=== PATIENT | female | born 1955 | race Native Hawaiian/Other Pacific Islander ===

== ENCOUNTER 2018-06-09 16:17 | Inpatient (IN) | payer OTHER ==
[~2018-06-09] VITALS: Ht 162.6 cm; Wt 50.8 kg
[~2018-06-09 16:17] MED LIST: AMOX500C85 PO; CELEXA20 MG PO; DAYPRO600 MG PO; ESTR0.6211 PO; FLUT0.05 NAS; LEVO0.1224 PO; LIDOPATCH TOP; LYRICA75 MG OR; MUPI2OIN2 TOP; PRISTIQ50 MG OR; RALO60TA PO; TOPAMAX25 MG PO; VYTORIN1 TA2 PO
[2018-06-09 16:18] VITALS: BP 161/108; TEMP 97.5
[2018-06-09 16:44] LABS: PLATELET COUNT 233 K/uL (152-353)
[2018-06-09 16:48] LABS: POTASSIUM 3.8 mmol/L (3.6-5.2)
--- NOTE | 2018-06-09 19:40 | NUR ---
62 YR OLD W/F PT BROUGHT TO ICU 3 AT 1930 FROM ER ADMITTED WITH COPD, PNEUMONIA, RESPIRATORY FAILURE. HISTORY OF COPD WEARS HOME O2, CONSTIPATION, HTN, CABG, BLOOD TRANSFUSION, SEIZURES, HYSTERECTOMY, KNEE SURGERY(PT CAN NOT REMEMBER WHICH KNEE), TAKES MORPHINE SUL ER Q DAY FOR PAIN FROM A BACK INJURY IN ACCIDENT PER PT. PT AWAKE, ALERT, AND ORIENTED X4 LAYING IN POSITION OF COMFORT, NOTE PT CAN MOVE AROUND IN BED PER SELF AND USUALLY DOES AT HOME PER SELF. SKIN WARM AND DRY, RADIAL AND PEDAL PULSES INTACT/EQUAL, BS+, LUNGS DIMINISHED ON AUSCULTATION WITH A VERY FAINT NOISE ON EXPIRATION, RESP RATE RAPID 27-30, BIPAP IN USE 15/5 FIO2 OF 50% AND O2 SAT OF 94%, 20G IV INTACT TO L AC WITH NO PROBLEMS NOTED TO SITE AND ROCEPHIN 1 GRAM(STARTED IN ER) INFUSING PER ORDER. EDUCATED PT AND HER ABOUT DOCTORS ORDERS, MEDS, DIET, ACTIVITY, LAB WORK, VITALS. ACKNOWLEDGE UNDERSTANDING. TO BRING A FEW HOME MEDS(IN MORNING) THAT WERE NOT BROUGHT TO HOSPITAL TONIGHT. ENCOURAGED TO CALL NEEDED, CALL LIGHT IN REACH, BED IN LOW POSITION, RAILS UP X3. EDUCATED ALSO ON BED CONTROLS.
[2018-06-09 19:50] VITALS: BP 135/93; TEMP 99
[2018-06-09 20:30] VITALS: BP 146/84
[2018-06-09 21:00] VITALS: BP 143/92
--- NOTE | 2018-06-09 21:15 | NUR ---
PT AWAKE AND ORIENTED WITH NO DISTRESS NOTED, DENIES ANY PAIN OR PROBLEMS, IV INTACT, BIPAP IN USE, VITALS BEING MONITORED. PT ASSISTED TO USE BEDPAN SINCE PT IS ON BIPAP AND IS ORDERED BEDREST, NOTE PT'S RESP RATE INCREASED AND SOME SOB NOTED WHEN PT PULLED HER PANTS OFF WHILE LAYING IN BED. NOTE 125 ML OF DARK YELLOW URINE. WILL MONITOR CLOSELY, RAILS UP X3, BED IN LOW POSITION, ENCOURAGED TO CALL NEEDED. PT NOW WATCHING TV.
[2018-06-09 22:00] VITALS: BP 133/88
--- NOTE | 2018-06-09 22:10 | NUR ---
AWAKE LAYING IN POSITION OF COMFORT IN BED WATCHING TV, NO DISTRESS NOTED, DENIES ANY PROBLEMS AT THIS TIME, WILL MONITOR CLOSELY.
[2018-06-09 23:00] VITALS: BP 133/89
[2018-06-10] VITALS (28 sets, daily range): BP systolic 113–166; BP diastolic 77–106; TEMP 98.2–99.8; Ht 162.6 cm; Wt 50.8 kg
--- NOTE | 2018-06-10 00:08 | NUR ---
PT RESTING IN BED WITH EYES CLOSED AND NO S/S OF PAIN OR DISTRESS NOTED, RESP RATE REMAINS ELEVATED 26-30, SQUIRREL MAN IN USE, VITALS BEING MONITORED Q 1 HOUR, BIPAP IN USE WITH SAT OF 95%, 20G IV INTACT TO L AC WITH NO PROBLEMS NOTED TO SITE, PT MOVE AROUND IN BED PER SELF, WILL MONITOR CLOSELY, RAILS UP X3, BED IN LOW POSITION.
--- NOTE | 2018-06-10 02:02 | NUR ---
PT AWAKE LAYING IN BED, DENIES ANY PAIN OR NEEDS AT THIS TIME, NO S/S OF DISTRESS NOTED, STATES SHE WOKE UP AND CAN NOT FALL BACK ASLEEP, 20G IV LOCK INTACT TO L AC, RESP RATE REMAINS ELEVATED 25-28, BIPAP IN USE WITH FIO2 OF 50% AND O2 SAT OF 97%, MORTGAGE LOAN OFFICER IN USE WITH RATE OF 101, VITALS BEING MONITORED, WILL MONITOR CLOSELY, RAILS UP X3, BED IN LOW POSITION, ENCOURAGED TO CALL NEEDED.
--- NOTE | 2018-06-10 02:42 | NUR ---
PT STATES THAT SHE IS FEELING ANXIOUS, VITALS STABLE, O2 SAT 96-97% ON BIPAP, RESP RATE 25-28 GETS UP TO 30 AT TIMES, NO S/S OF ACUTE DISTRESS NOTED. [address] NARDA IBRAHIM IN ER ABOUT PT'S ANXIETY, NEW ORDER FOR ATIVAN 0.5MG PO TID PRN FOR ANXIETY T.O. R&V DR. Susy IBRAHIM/ARJUN GORDON RN. MADE AWARE THAT THERE IS AN ADMIT ORDER FOR NPO UNTIL OFF BIPAP BUT DR. IBRAHIM STATES IT IS OKAY TO GIVE SMALL AMOUNT OF WATER WITH PO MEDICATION.
--- NOTE | 2018-06-10 03:10 | NUR ---
GAVE ATIVAN 0.5MG PO PRN WITH SMALL AMOUNT OF WATER FOR CONTINUED ANXIETY PER PT, WILL MONITOR CLOSELY.
[2018-06-10] MEDS ORDERED: MORPHINE SULFAT90 MG PO (03:23)
[2018-06-10] MEDS ORDERED: ROPINIROLE2 M1 PO (03:27)
[2018-06-10] MEDS ORDERED: ATEN50TA36 PO (03:33)
--- NOTE | 2018-06-10 04:15 | NUR ---
PT MANUAL B/P IS 162/94, NOTE PT DOES TAKE MORNING B/P MEDICATION AT HOME, PT REMAINS AWAKE WITH NO S/S OF ACUTE DISTRESS OR PAIN NOTED, DENIES ANY NEEDS, 20G IV LOCK INTACT TO L AC, BIPAP IN USE WITH O2 SAT OF 97%, ARCHITECTURE INTERN IN USE, WILL MONITOR CLOSELY, RAILS UP X3, BED IN LOW POSITION.
--- NOTE | 2018-06-10 05:15 | NUR ---
B/P ON MONITOR READS 150/100. MANAGER AGRICULTURAL CHANGED B/P CUFF TO SMALL ADULT, B/P RECHECKED AND IS NOW 133/96, WILL MONITOR CLOSELY.
[2018-06-10 05:32] LABS: PLATELET COUNT 200 K/uL (152-353)
[2018-06-10 05:39] LABS: POTASSIUM 3.5 mmol/L (3.6-5.2)
--- NOTE | 2018-06-10 06:16 | NUR ---
RESTING IN POSITION OF COMFORT WITH EYES CLOSED, NO S/S OF PAIN OR DISTRESS NOTED, IV LOCK INTACT TO L AC, BIPAP IN USE, VITALS BEING MONITORED, WILL MONITOR CLOSELY, RAILS UP, BED IN LOW POSITION.
--- NOTE | 2018-06-10 07:00 | NUR ---
PT RESTING IN LOW FOWLERS. O2 SAT 95% ON BIPAP 15/5 WITH 50% FIO2.,RR RATE 24. NO C/O PAIN.
[2018-06-10] MEDS ORDERED: [UNRECOGNIZED DRUG - OTHER] PO (07:05)
--- NOTE | 2018-06-10 09:30 | NUR ---
PT CONTINUES TO REST QUIETLY IN LF, ENCOURAGED PT TO TURN SELF IN BED OR WE COULD HELP TURN HER ,EXPLAINED REASONS BEHIND TURNING SELF. PT STATES 'I'M OK RIGHT NOW. I SHIFT MYSELF'.
--- NOTE | 2018-06-10 10:15 | NUR ---
PT'S IN TO VISIT. ASKED WHEN DR WOULD BE IN. EXPLAINED TO THAT IT COULD BE ANY TIME OR LATER TODAY. PHONE CALL TO THE ER,TALKED WITH LORA. REQUESTED THAT LORA WOULD TELL DR CHOW THAT PT'S WAS HERE & WOULD LIKE TO SPEAK TO HIM IF POSSIBLE.
--- NOTE | 2018-06-10 12:30 | NUR ---
PT RESTING WITH EYES CLOSED,O2 SAT 97%. RR RATE 27.
[2018-06-10] MEDS ORDERED: LEVE500T5 PO (12:51)
[2018-06-10] MEDS ORDERED: ANORO ELLIPTA 61 AER INH (12:53)
--- NOTE | 2018-06-10 14:57 | NUR ---
PT SITTING UP TALKING WITH ,BIPAP INTACT,RESPIRATORY RATE UP TO 33 & SOB INCREASES WITH MINIMAL EFFORT. MOUTH CARE.
--- NOTE | 2018-06-10 15:45 | NUR ---
PHONE CALL TO ER. TALKED WITH LORA. DR ZACH CHOW STILL BUSY.
--- NOTE | 2018-06-10 15:47 | NUR ---
PT ASSISTED TO USE BEDPAN,VOIDED 300 ML CONCENTRATED DK YELLOW URINE. ASSISTED WITH PERICARE PER SRINI BHANDARI LPN. MOUTHCARE.
--- NOTE | 2018-06-10 15:59 | NUR ---
CHEST & ABD XRAY CALLED TO DR PATEL. NO NEW ORDERS AT THIS TIME.
--- NOTE | 2018-06-10 19:20 | NUR ---
DR. ZACH CHOW IN ICU MAKING ROUNDS ON PT. 193 PT RESTING QUIETLY WITH EYES CLOSED, NO S/S OF PAIN OR DISTRESS NOTED. SKIN WARM AND DRY, RADIAL AND PEDAL PULSES INTACT/EQUAL, BS+, LUNGS DIMINISHED WITH FAINT EXPIRATORY WHEEZING NOTED ON AUSCULTATION, 20G IV LOCK INTACT TO L AC WITH NO PROBLEMS NOTED TO SITE, RESP RATE REMAINS ELEVATED AT TIMES AND SLIGHTLY SHALLOW, BIPAP WITH FIO2 OF 50% WITH O2 SAT OF 97%, VITALS BEING MONITORED, WEB COORDINATOR IN USE WITH RATE IN THE 80s-90s. WILL MONITOR CLOSELY, RAILS UP, BED IN LOW POSITION, HOB ELEVATED IN POSITION OF COMFORT, PT MOVES AROUND IN BED PER SELF.
--- NOTE | 2018-06-10 20:30 | NUR ---
PT ASSISTED TO USE BEDPAN, NOTE 200ML OF CONCENTRATED LIGHT TEA/DARK YELLOWISH COLORED URINE NOTED. NOTE PERRLA. DENIES ANY NEEDS AT THIS TIME.
--- NOTE | 2018-06-10 20:45 | NUR ---
ASSISTED PT WITH MOUTH CARE AND PT HAD A FEW ICE CHIPS, NO PROBLEMS NOTED, DR IS AWARE THAT PT IS GETTING ICE CHIPS.
--- NOTE | 2018-06-10 22:10 | NUR ---
MANUAL B/P IS 150/96, WILL CONTINUE TO MONITOR, PT'S HOME MEDS INCLUDING B/P MED HAVE NOT BEEN RESTARTED BUT MEDS HAVE BEEN LOOKED AT BY DR. Susy CHOW TODAY.
--- NOTE | 2018-06-10 22:10 | NUR ---
PT AWAKE WATCHING TV IN POSITION OF COMFORT WITH HOB ELEVATED, NO DISTRESS OR PAIN NOTED, IV INTACT WITH FLUID ONGOING, BIPAP IN USE. C/O SOME NAUSEA AND NOT BEING ABLE TO SLEEP. GAVE PT ZOFRAN 4MG PO PRN AND AMBIEN 10MG PO PRN, WILL MONITOR CLOSELY.
--- NOTE | 2018-06-10 23:10 | NUR ---
RESTING QUIETLY IN BED WITH EYES CLOSED, NO S/S OF PAIN OR DISTRESS NOTED, IV INTACT WITH NS INFUSING AT 100ML/HR, BIPAP IN USE WITH O2 SAT OF 97%, RESP RATE NONLABORED, VITALS BEING MONITORED, NOTE PT'S B/P IS NOW 120/84, WILL MONITOR CLOSELY, RAILS UP X3, BED IN LOW POSITION.
[2018-06-11] VITALS (23 sets, daily range): BP systolic 86–166; BP diastolic 55–116; TEMP 97.9–99.1
--- NOTE | 2018-06-11 02:02 | NUR ---
RESTING IN BED IN POSITION OF COMFORT WITH EYES CLOSED, NO S/S OF PAIN OR DISTRESS NOTED, IV INTACT WITH FLUID ONGOING, RESP RATE 24 NONLABORED, BIPAP IN USE WITH O2 SAT OF 97%, VITALS BEING MONITORED, WILL MONITOR CLOSELY, RAILS UP, BED IN LOW POSITION.
[2018-06-11 05:57] LABS: PLATELET COUNT 209 K/uL (152-353)
--- NOTE | 2018-06-11 05:58 | NUR ---
DECREASED FIO2 TO 45% PER ABG RESULTS. NURSE Shaila GORDON RN AWARE OF CHANGES.
--- NOTE | 2018-06-11 06:00 | NUR ---
ASSISTED PT TO USE BEDPAN, NO DISTRESS OR PAIN NOTED, IV INTACT, BIPAP IN USE, VITALS BEING MONITORED, WILL MONITOR CLOSELY, RAILS UP, BED IN LOW POSITION.
[2018-06-11 06:10] LABS: POTASSIUM 3.6 mmol/L (3.6-5.2)
--- NOTE | 2018-06-11 06:50 | NUR ---
NEW ORDER FROM DR. NARDA IBRAHIM TO START ATENTOLOL 25MG PO BID DUE TO B/P BEING A LITTLE HIGH. ASLO NEW ORDER FOR PORTABLE CHEST X-RAY NOW, CLEAR LIQUID DIET TO START THIS AM AND ADVANCE TOLERATED. T.O. R&V DR. NARDA IBRAHIM/ARJUN GORDON RN.
--- NOTE | 2018-06-11 08:22 | NUR ---
AM ASSESSSEMENT DONE PT RESTING IN BED HOB UP. PT WANTS OFF BIPAP. REMOVED BIPAP CHANGED TO 02 AT 4 L NC HUMIDIFIED HOB UP SAT 94 RESP RATE 25. TAKING SIPS WATER. DR BAUTISTA VISITED CHECKED PATIENT WILL COME BACK TO REVIEW CHART AND WRITE NEW ORDERS.
--- NOTE | 2018-06-11 08:26 | NUR ---
PT UNABLE TO ROCKY NC RESP RATE GOING UP 30 MIN. SAT DROPPING TO 89. RESP DEPT HERE PT BACK ON BIPAP.
--- NOTE | 2018-06-11 09:05 | NUR ---
DR BAUTISTA HERE CHECKED PT. OBSERVED BREATHING PATTERNS, LUNG SOUNDS RECIEVED NEW ORDERS. TALKED WITH PATIENT ABOUT HERE BREATHING STATUS AND IF BIPAP DID NOT WORK TALKED ABOUT INTUBATION AND VENTILATOR. PT AGREED TO GO ON VENT IF NEEDED. VERY TIRED RESP 28 MIN LABORED LUNGS TIGHT EXP WHEEZING THROUGH OUT. RESP DEPT HER PT RECIEVED BREATHING TX.
--- NOTE | 2018-06-11 10:00 | NUR ---
INSERTED 16 F SOOD CATH BY MARISOL KNOWLES LPN. PT ROCKY WELL RETURN DARK ISHMAEL URINE. NOTED B/P CONTINUES TO BE ELEVATED. 153/108, RECIEVED PO MED EARLIER THIS AM FOR B/P. REPORT TO .
--- NOTE | 2018-06-11 11:00 | NUR ---
PT RECIEVED NEBS, CHANGED OVER TO CONTINIOUS NEB, ROCKY FOR ABOUT 30 MIN WORKING HARDER TO BREATH USING ACCESSORY MUSCLES. SAT BEGAN TO DROP SOME. ABG DRAWN. HERE DOCTOR SPOKE WITH HIM ABOUT PT CONDITION. AND POSSIBLE NEED FOR VENT. OK WITH .
--- NOTE | 2018-06-11 11:32 | NUR ---
placed on cont neb as ordered x 1 hr. tolerated for 30min only. ABG done then placed back on Bipap. Bipap tolerated well at this time.
--- NOTE | 2018-06-11 12:00 | NUR ---
DID NOT ROCKY NEBS VERY WELL. ABG REPORT TO DR BAUTISTA. DR WHITE OBSERVED PT. PLACE PT BACK ON BIPAP. HOLD NPO FOR NOW PT BREATHING HARD, HIGH RISK ASPIRATION. SAT's LOW 90'S. USING ACCESSORY MUSCLES, DISTENDED NECK VEINS. RECIEVED LASIX 40 AT 1135 WORKING WELL NOTED INCREASED OUTPUT.
--- NOTE | 2018-06-11 14:00 | NUR ---
CONTINUES RESTING ON BIPAP. SAT98% APPEARS TO BE DOING BETTER. REMOVED MASK OCCASIONALLY TO TAKE SIP OF 7 UP. C/O DRY MOUTH ASSISTED PT NEEDED. EMPTIED 100 ML FROM SOOD CATH CLEAR ISHMAEL URINE. PT NOT BREATHING HARD IMPROVED SATS. LESS NECK VEIN DISTENTION.
--- NOTE | 2018-06-11 17:00 | NUR ---
RESTING IN BED HOB UP. CONTINUES ON BIPAP. SAT 96% PT APPEARS TO BE BETTER. RESP STILL LABORED CONTINUES WITH EXP WHEEZING. DOSEN'T SOUND TIGHT. PT STATES "STILL FEEL BAD" EMPTIED ANOTHER 700 CLEAR URINE. PT WEARING BIPAP MASK MOUTH BREATHING UNABLE TO MONITOR CO2. NASAL LINE. IN PLACE BUT PT MOUTH BREATHING WITH BIPAP MASK ON.
--- NOTE | 2018-06-11 20:21 | NUR ---
VISITORS AT BEDSIDE. PT WEARING AND USING BIPAP. PT DOES REMOVE AND PULLS UP MASK TO TAKE SWALLOWS OF WATER. RESP IS PRESENT AND AEROSOL TREATMENTS ARE BEING ADMINISTERED ORDERED. PT IS UPSET THAT HER IS IN THE ER HERE IN [place]. IS BEING SHIPPED TO [place], PT'S DIGITAL [employer]ENS[employer] INVESTIGATOR AND HER SONS IN TO SUPPOT PT AND REASSURE HER THAT EVERYTHING IS OK.
--- NOTE | 2018-06-11 23:02 | NUR ---
PT IS RESTING WITH EYES CLOSED. USING BI-PAP. HR IS NOW 64 BMP. BP IMPROVED TO 117/84. HR IS 97 PERCENT. SOOD CATHETAR INTACT WITH CLEAR URINE DRAINING. RESP ARE LESS LABORED AT 24 PER MINUTES.
[2018-06-12] VITALS (18 sets, daily range): BP systolic 135–178; BP diastolic 77–113; TEMP 97.6–98.7
--- NOTE | 2018-06-12 01:58 | NUR ---
PT AWAKE AND COUGHING UNPRODUCTIVELY. GUAIFENESIS 15 ML GIVEN TO PT. PT DRANK WATER AND BIPAP WAS PLACED BACK ON PT,
--- NOTE | 2018-06-12 02:14 | NUR ---
PT BACK TO RESTING. USING BIPAP. O2 SAT IS 94 PERCENT.
--- NOTE | 2018-06-12 06:30 | NUR ---
UA WAS COLLECTED AND SENT TO LAB. BLOOD WAS DRAWN FOR CBC,CMP, IRON AND MAG AND PHOS. PT HAS TOLERATED THE BIPAP MOST OF THIS SHIFT. PT HAS BEEN TAKING SIPS OF WATER TO KEEP MOUTH MOIST.
[2018-06-12 06:34] LABS: PLATELET COUNT 255 K/uL (152-353)
[2018-06-12 06:40] LABS: POTASSIUM 3.5 mmol/L (3.6-5.2)
--- NOTE | 2018-06-12 08:00 | NUR ---
PATIENT RESTING IN BED, RESTING QUIETLY WEARING BIPAP ROCKY WELL. VITAL SIGNS APPEAR IMPROVED SOME PT SAT 98% ON BIPAP. ATIVAN GIVEN PO EARLIER EFFECTIVE. CALLED AM LABS TO DR BAUTISTA, RECIEVED ORDERS.
--- NOTE | 2018-06-12 09:00 | NUR ---
PT RESTING EASIER THIS AM STILL USING ACCESORY MUSCLES. EXP WHEEZING THROUGHOUT LUNG FIELD. WEARING BIPAP. RECIEVED NEBS ORDERED. UNABLE TO DO CONTINIOUS NEB NEED PRESSURE FROM BIPAP TO KEEP SATS UP. DR BAUTISTA VISITED CHECKED PT. TALKED WITH PATIENT EXPLAINED TO HER THAT SHE NEEDED TO GO TO [place] PT AGREED TO GO.
--- NOTE | 2018-06-12 10:00 | NUR ---
PT AWAKE FAMILY HERE TOLD THEM ABOUT PT GOING TO [facility] IN [place]. PT RECIEVING AM MEDS ORDERED. CALLS MADE PAPERWORK SIGNED WAIT FOR ROOM NO.
--- NOTE | 2018-06-12 12:00 | NUR ---
PT CONTINUES SHORT OF BREATH WHEN TALKING BIPAP OFF UNABLER TO TAKE FOOD AT THIS TIME. WILL REMOVE MASK AND TAKE FEW SIPS CLEAR LIQUIDS NO COMPLAINTS. FAMILY MEMBER KATTY TOOK PT'S CLOTHS. GLASSES. AND HOME MEDS WITH HER. PT CONTINUES SITTING UP IN BED HOB UP HIGH SAT 98%
--- NOTE | 2018-06-12 13:46 | NUR ---
RESTING WITH BIPAP ON SAT 97% RESP 24 MIN. REPORT ELEVATED B/P TO DR BAUTISTA RECIEVED ORDERS.
--- NOTE | 2018-06-12 14:05 | NUR ---
PATIENT RECIEVED CLONIDINE 0.1 PO FOR ELEVATED B/P.
--- NOTE | 2018-06-12 15:00 | NUR ---
RECIEVED CALL FROM [facility] PT TO GO TO BED 18 NEURO ICU. CALLED TO EMS REPORT, PT READY TO GO. EMS IS OUT ON RUN WILL BE BACK 2-3 HRS.
--- NOTE | 2018-06-12 15:30 | NUR ---
DR BAUTISTA STOPPED BY CHECK ON PATIENT NO NEW ORDERS. CLONIDINE EFEECTIVE B/P 141/97
--- NOTE | 2018-06-12 15:59 | NUR ---
CALLED TO [facility] SPOKE WITH NURSE NEURO ICU. REPORT THAT EMS WAS OUT ON RUN AND WOULD BE BACK IN 2-3 HRS. WILL HOLD BED FOR PATIENT AND WILL CALL BACK REPORT WHEN EMS GETS HERE TO JUNIOR SALES REPRESENTATIVE PATIENT.
--- NOTE | 2018-06-12 16:54 | NUR ---
ASSISTED WITH SPONGE BATH, ASSISTED BY KARMA KNOWLES LPN. PT ROCKY WELL. RESTING IN BED HOB UP IV FLUIDS CONTINUE INFUSING WITHOUT DIFFICULTY. CONTINUE WITH GOOD URINE OUTPUT. SAT 99% ON BIPAP. FIO2 AT 45%.
--- NOTE | 2018-06-12 18:14 | NUR ---
PATIENT RESTING QUIETLY SAT 99% ON BIPAP. WILL TAKE SIPS CLEAR LIQUIDS. ROCKY WELL NO COUGH. ASSIST5 NEEDED. EMS CALL HAD TO MAKE ANOTHER RUN FROM ER CARDIAC/ STROKE PATIENT. SO TRANSFER WILL BE DELAYED A LITTLE LONGER. KERA, PT'S SON CALLED, REPORT THAT SHE WAS RESTING WELL AND MAINTAIN GOOD OXYGEN SAT'S. WOULD JUST BE A LITTLE LATER GETTING TO [facility]. WILL CALL HIM BACK WHEN PATIENT LEAVES.
--- NOTE | 2018-06-12 21:26 | NUR ---
EMS HERE TO TRANSFER PT TO [facility]. SOOD CATHETAR INTACT. PT HEPLOCKED TO HER LEFT ANTECUBITAL. PAPER WORK GIVEN TO EMS. LEFT HERE VIA STRETCHER. WITH BIPAP.
--- NOTE | 2018-06-12 21:30 | NUR ---
REPORT WAS CALLED TO CHING CEBALLOS RN AT [facility]. CALLED PT'S SON KERA AND HE WAS NOTIFIED THAT PT WAS ON HER WAY TO [place] VIA EMS.
== END 2018-06-12 21:30 | disposition short-term general hospital (02) | DRG 189 ==
LOC: ED 16:25 → ICU 18:20
PROVIDERS: Internal Medicine; ADMIT Family Medicine
DX: J96.00 Acute respiratory failure, unspecified whether with hypoxia or hypercapnia (principal); J18.8 Other pneumonia, unspecified organism; J44.0 Chronic obstructive pulmonary disease with (acute) lower respiratory infection; J44.1 Chronic obstructive pulmonary disease with (acute) exacerbation; I25.10 Atherosclerotic heart disease of native coronary artery without angina pectoris
CPT/HCPCS: 36415; 36600; 80053; 81000; 82542; 82805; 83540; 83735; 84100; 84443; 84484; 85007; 85027; 87040; 87077; 87205; 87502; 93005; 94640; 94644; 94664; 94760; 96365; 99285; J0456; J0696; J1100; J1650; J1940; J2930; J3475; J3480; J3490

== ENCOUNTER 2018-06-12 22:02 | Outpatient (CLI) | payer OTHER ==
[~2018-06-12 22:02] MED LIST changes: +ANORO ELLIPTA 61 AER INH; +ATEN50TA36 PO; +LEVE500T5 PO; +MORPHINE SULFAT90 MG PO; +ROPINIROLE2 M1 PO; +[UNRECOGNIZED DRUG - OTHER] PO
== END 2018-06-12 23:25 | disposition short-term general hospital (02) ==
LOC: AMB 22:02
DX: J96.00 Acute respiratory failure, unspecified whether with hypoxia or hypercapnia (principal); J18.8 Other pneumonia, unspecified organism; J44.0 Chronic obstructive pulmonary disease with (acute) lower respiratory infection; J44.1 Chronic obstructive pulmonary disease with (acute) exacerbation; I25.10 Atherosclerotic heart disease of native coronary artery without angina pectoris
CPT/HCPCS: A0425; A0427